=== PATIENT | male | born 1955 | race Two or more races ===

== ENCOUNTER → 2021-10-12 13:26 | Outpatient (BNVA) | payer BC, SELFPAY | PROVIDERS: PCP Internal Medicine; Visit Provider Urology ==

== ENCOUNTER → 2022-11-13 14:45 | Outpatient (BNVA) | payer BC, SELFPAY | PROVIDERS: PCP Internal Medicine; Visit Provider Urology | DX: Z13.89 Encounter for screening for other disorder (principal) ==

== ENCOUNTER 2023-11-14 13:37 | Outpatient (AMB) | payer BC, SELFPAY ==
--- NOTE | 2023-11-14 13:49 | MHC.OFFVIS ---
Intake Intake Visit Reasons: 1Y PSA(set) Intake Note: Patient is Present for Follow Up PSA Urology Medication: Sildenafil Antibiotic Allergies: NKDA Blood Thinners: NONE Allergies Ceftin Allergy (Unknown, Uncoded 11/14/23 13:50) Unknown HPI HPI Comments History of Present Illness Details Mr Stone is a very pleasant male. They are a patient of Dr. Richardson. They are seen in the office today for the following urologic conditions. - prostate cancer Yearly follow-up PSA room remains well controlled Effective urination Continued surveillance Prostate cancer:? 2011 Fortunato 3+3, low volume - treatment with external beam radiation ?Talked about going to [facility] over zoom. ? Prostate cancer was diagnosed?May 2012. PSA at diagnosis 6.1. Prostate volume 56 cc.? The Lander grade is?3+3 one out of 12 cores. Right [place] ? TNM Classification of Malignant Tumours (TNM)?T1c ? Initial therapy included?radiation therapy. Dr England at [facility]. Pre-treatment PSA had peaked at 9.4 ? Recent labs included?a free PSA June 2015 2.2, ?08/18 1.9, 05/19 1.2, 02/18 1.2, 02/19 1.1,?06/22 1.0, 08/23 0.8, 09/24 0.9, 11/26 0.9 ? Associated conditions? erectile dysfunction ?Yes ? Current symptoms include?Minimal? PFSH Medical History Hematospermia HTN (hypertension) Hyperlipidemia Prostate cancer Surgical History History of surgery Social History Patient Tobacco Use Status: Never used Tobacco Review of Systems Const Denies chills and Denies fever(s) Card Reports no additional complaints and Denies syncope Resp Denies cough GI Denies abdominal pain and Denies heartburn Reports as per HPI and Denies change in libido Neuro Denies syncope Psych Denies change in libido Endo Denies change in libido Physical Exam Const General: cooperative, healthy appearing, comfortable and no acute distress Orientation/consciousness: patient oriented x3 HEENT Face and sinus: Yes normal facial exam Mouth: moist mucous membranes Neck Neck: Yes normal visual inspection, Yes full ROM and Yes trachea midline Chest Chest palpation & inspection: normal inspection of the chest Resp Effort & Inspection: normal respiratory effort, able to speak in complete sentences and no respiratory distress GI Inspection: Yes normal to inspection Back/Spine/Pelvis Cervical Spine: normal cervical lordosis Thoracic/Lumbar Spine: thoracic and lumbar spine normal to inspection Skin General skin exam: no rashes or lesions noted Neuro General: patient oriented x3, gait normal, tone normal and moves all extremities Extrem General: Yes normal to inspection and Yes capillary refill normal Assessment & Plan Assessment & Plan (1) Prostate cancer: Comment: Fortunato 3 + 3 Code(s): C61 - Malignant neoplasm of prostate Plan Twelve month follow-up PSA Orders: Orders Prostate Specific Antigen 364 Days C61 - Malignant neoplasm of prostate Patient Instructions: Imaging studies, laboratory and physical exam results were discussed and reviewed in detail. No major barriers to patient understanding were identified. An opportunity to ask questions regarding the treatment plan was provided. All questions were answered. The patient expressed understanding and agreement with the above treatment plan. The patient is aware they should contact our office by phone for worsening of their current condition or the appearance of new urologic symptoms. Compliance is encouraged with any medications and followup testing that is ordered. It is a privilege to participate in the urologic care of your patient. If you have any questions or concerns regarding treatment for the above conditions, or other urologic issues, please do not hesitate to contact me. The office telephone contact is [phone]. This note is constructed using voice recognition software. While every effort has been made to ensure accuracy permit agent errors may have been included. Yours sincerely, Dr Ronnie Nielsen MD, [facility] - Urology Providers of Expert, Compassionate Care for the Genitourinary System Coding Level of Care Code Est Pt Level 4 (33560) Diagnoses Prostate cancer C61
== END 2023-11-14 14:54 | disposition home or self-care (01) ==
PROVIDERS: Visit Provider Urology
DX: C61 Malignant neoplasm of prostate (principal)
CPT/HCPCS: 99213

== ENCOUNTER → 2023-11-14 13:37 | Outpatient (BNVA) | payer BC, SELFPAY | PROVIDERS: Visit Provider Urology ==

== ENCOUNTER 2024-12-03 13:39 | Outpatient (AMB) | payer BC, SELFPAY ==
--- OUTSIDE RECORDS SUMMARY | 2024-12-03 13:44 | XMS_ITS | Continuity of Care Document ---
Author Organization [facility] Adult Address [address] [place] [address]- Care Team Providers Care Body Line Finisher Name Role Phone Clovis Hearn Primary Care Physician [phone] Encounter [facility] ACCT R [id number] Date(s): 11/25/24 - 12/02/24 [facility] [address] [place] [address]- Encounter Diagnosis Medicare annual wellness visit, subsequent(Discharge Diagnosis) - 11/25/24 Diabetes mellitus type 2, uncomplicated(Discharge Diagnosis) - 11/25/24 Hypertension(Discharge Diagnosis) - 11/25/24 Mixed hyperlipidemia(Discharge Diagnosis) - 11/25/24 History of prostate cancer(Discharge Diagnosis) - 11/25/24 Fatigue(Discharge Diagnosis) - 11/25/24 Numbness and tingling in both hands(Discharge Diagnosis) - 11/25/24 Vitamin D deficiency(Discharge Diagnosis) - 11/25/24 Erectile dysfunction(Discharge Diagnosis) - 11/25/24 Attending Physician: Clovis Hearn Encounter Type: Office Visit Allergies, Adverse Reactions, Alerts Substance Criticality Severity Reaction Reaction Severity Status Ceftin Active Immunizations Given and Recorded Vaccine Date Status Refusal Reason influenza virus vaccine, inactivated 08/18/24 Audi rded influenza virus vaccine, inactivated 08/20/23 Audi rded influenza virus vaccine, inactivated 07/25/22 Audi rded influenza virus vaccine, inactivated 08/04/21 Audi rded influenza virus vaccine, inactivated 08/04/20 Audi rded influenza virus vaccine, inactivated 08/16/19 Audi rded SARS-CoV-2(COVID-19)mRNA-LNP vac([id number]) 08/11/24 Recorded SARS-CoV-2(COVID-19)mRNA-LNP vac([id number]) 01/15/24 Recorded SARS-CoV-2(COVID-19)mRNA-LNP vac(vvw158) 08/05/23 Recorded RSV vaccine preF3, recombinant 07/16/23 Recorded [id number] bivalent booster vax 03/05/23 Recorded [id number] 12y+ bivalent booster vax 08/03/22 Recorded SARS-CoV-2 mRNA ([id number]) vax 03/03/22 Recorded pneumococcal 23-valent vaccine 08/29/21 Given SARS-CoV-2 (COVID-19) mRNA BNT-162b2 vac 08/07/21 Recorded SARS-CoV-2 (COVID-19) mRNA BNT-162b2 vac 01/27/21 Recorded SARS-CoV-2 (COVID-19) mRNA BNT-162b2 vac 01/06/21 Recorded zoster vaccine, inactivated 1 08/28/18 Recorded zoster vaccine, inactivated 2 06/26/18 Recorded Influenza Virus Vaccine (oldterm) 3 08/10/18 Recor ded Influenza Virus Vaccine (oldterm) 08/05/17 Recorde d Influenza Virus Vaccine (oldterm) 08/30/16 Recorde d Influenza Virus Vaccine (oldterm) 08/30/15 Recorde d Influenza Virus Vaccine (oldterm) 08/17/14 Recorde d Influenza Virus Vaccine (oldterm) 09/06/13 Recorde d Influenza Virus Vaccine (oldterm) 10/30/12 Recorde d tetanus/diphtheria/pertussis, acel(Tdap) 02/12/16 Recorded 1Result Comment: [facility] 2Result Comment: [facility] 3Result Comment: [facility] Medications Albuterol (Eqv-ProAir HFA) 90 mcg/inh inhalation aerosol 2 puffs, Inhalation, Every 4 hours, PRN NEEDED, # 8.5 each, 2 Refills, Maintenance, 06/14/24 8:35:00 AM EDT, [id number], 30, INHALE 2 PUFFS BY MOUTH EVERY 4 HOURS NEEDED, 172.7, cm, 04/14/24 16:35:00 EDT, Height, 81, kg, 03/19/23 15:44:00 EDT, Dry Weight Start Date: 06/14/24 Status: Ordered Quantity: 8.5 Unit: each Repeat number: 1 Glucosamine & Chondroitin with MSM 0 Refills, Maintenance, 03/06/22 4:14:00 PM EDT, Partial fill upon patient request if the prescription is for a schedule II opioid drug. Start Date: 03/06/22 Status: Ordered Repeat number: 1 lisinopril 20 mg oral tablet 1, tablet, By Mouth, Daily, Refills require lab work. Order in computer., # 90 tablet, Refills 0, Tot. Refills 0, Maintenance, 11/25/24 2:47:00 PM EST, Route to Pharmacy Electronically, [facility]/pharmacy #[id number], 172.7, cm, 04/14/24 16:35:00 EDT, Height, 81, kg, 03/19/23 15:44:00 EDT, Dry Weight Start Date: 11/25/24 Status: Ordered Quantity: 90.0 Unit: tablet Repeat number: 1 metFORMIN 500 mg oral tablet 1 tablet, By Mouth, Daily, # 90 tablet, 3 Refills, Maintenance, 04/14/24 4:20:00 PM EDT, [facility]/pharmacy #[id number], 172.7, cm, 04/14/24 16:07:00 EDT, Height, 81, kg, 03/19/23 15:44:00 EDT, Dry Weight Start Date: 04/14/24 Status: Ordered Quantity: 90.0 Unit: tablet Repeat number: 4 Misc Rx Triple flex, Refills 0, Maintenance, 08/21/20 4:10:00 PM EDT, Supply Start Date: 08/21/20 Status: Ordered Repeat number: 1 sildenafil 100 mg oral tablet See Instructions, TAKE HALF TO 1 WHOLE TABLET BY MOUTH DAILY NEEDED ONE HOUR BEFORE SEXUAL ACTIVITY, # 30 tablet, 2 Refills, Maintenance, 11/25/24 4:35:00 PM EST Start Date: 11/25/24 Status: Ordered Quantity: 30.0 Unit: tablet Repeat number: 3 simvastatin 10 mg oral tablet 1, tablet, By Mouth, Daily at bedtime, # 90 tablet, Refills 3, Maintenance, 02/23/24 10:00:00 AM EDT, Route to Pharmacy Electronically, [id number], 172.7, cm, 12/17/23 9:00:00 EST, Height, 81, kg, 03/19/23 15:44:00 EDT, Dry Weight Start Date: 02/23/24 Status: Ordered Quantity: 90.0 Unit: tablet Repeat number: 1 Vitamin C By Mouth, Daily, 0 Refills, Maintenance, 01/24/20 4:37:00 PM EDT Start Date: 01/24/20 Status: Ordered Repeat number: 1 Vitamin D 59319 iu oral capsule 50,000 International_Units, 1, capsule, By Mouth, Daily, Refills 0, Maintenance, 01/24/20 4:37:00 PMEDT Start Date: 01/24/20 Status: Ordered Repeat number: 1 Problem List Condition Confirmation Course Effective Dates Status H ealth Status Informant Erectile dysfunction Confirmed Active History of prostate cancer 1, 2 Confirmed 05/03/12 Active Hypertension Confirmed Active Mixed hyperlipidemia Confirmed Active Diabetes mellitus type 2, uncomplicated Confirmed Active 1Was diagnosed in 05/2012 with PSA at 6.1. Most recent PSA on 02/2019 was 1.[address] Nielsen at [facility] [place] on 02[place]10[place]2019 - Repeat PSA lab. RTC in 1 year Diagnosis Diagnosis Type Effective Dates Health Status Clinical Service Informant Medicare annual wellness visit, subsequent Discharge Diagnosis 11/25/24 Diabetes mellitus type 2, uncomplicated Discharge Diagnosis 11/25/24 Hypertension Discharge Diagnosis 11/25/24 Mixed hyperlipidemia Discharge Diagnosis 11/25/24 History of prostate cancer Discharge Diagnosis 11/25/24 Fatigue Discharge Diagnosis 11/25/24 Numbness and tingling in both hands Discharge Diagnosis 11/25/24 Vitamin D deficiency Discharge Diagnosis 11/25/24 Erectile dysfunction Discharge Diagnosis 11/25/24 Vital Signs Most recent to oldest [Reference Range]: 1 Height 172.7 cm (11/25/24 4:12 PM) Weight 74.2 kg (11/25/24 4:12 PM) Oxygen Saturation [94-100 %] 100 % (11/25/24 4:12 PM) Pulse Rate [55-90 bpm] 67 bpm (11/25/24 4:12 PM) Body Mass Index [18.5-24.99 kg/m2] 24.88 kg/m2 (11/25/24 4:12 PM) Blood Pressure [90-138/55-84 mm Hg] 123/ 83mm Hg (11/25/24 4:12 PM) Mode of Delivery (Oxygen) Room air (11/25/24 4:12 PM) Blood pressure sites Arm, right (11/25/24 4:12 PM) Social History Social History Type Response Smoking Status Never (less than 100 in lifetime) entered on: 09/16/22 Sex Sex Representation Male (finding) Note * Liat Bird MA: PERFORM Event Display: Patient Education/Instruction Authored Date: [id number] Ambulatory Adult Visit Summary [facility] [address] [place] [address] Name: LACI ORTEGA : 1955?? Visit: 11/25/2024 16:04?? Ambulatory Visit Instructions ?? Your Care Team Primary Care Provider Clovis Hearn? This Visit Provider Clovis Hearn Your Diagnosis Medicare annual wellness visit, subsequent Diabetes mellitus type 2, uncomplicated Hypertension Mixed hyperlipidemia History of prostate cancer Fatigue Numbness and tingling in both hands Vitamin D deficiency Paresthesia of skin Erectile dysfunction Vitals Signs Pulse Rate: 67 bpm Height: 172.7 cm Systolic Blood Pressure: 123 mm Hg Weight: 74.2 kg Diastolic Blood Pressure: 83 mm Hg Body Mass Index: 24.88 kg/m2 Oxygen Saturation: 100 % Body surface area: 1.89 What to do next Follow-Up Appointments Follow Up with??Clovis Hearn When:??11/30/2025 03:10 PM EST Where: [address] [place] [id number]- Follow Up with??Clovis Hearn When:??06/22/2025 03:30 PM EDT Where: [address] [place] [address]- Future Orders Basic Metabolic Panel - Routine, Once, 11/25/24 14:46:00 EST, Future Order, [facility], Blood?? Comprehensive Metabolic Panel - Routine, Once, 11/25/24 16:20:00 EST, Future Order, [facility], Blood?? Lipid Panel - Routine, Once, 11/25/24 16:20:00 EST, Future Order, [facility], Blood?? Hemoglobin A1C (Monitoring) - Routine, Once, 11/25/24 16:20:00 EST, Future Order, [facility], Blood?? Microalbumin Urine - Routine, Once, 11/25/24 16:20:00 EST, [facility], Urine?? PSA - Routine, Once, 11/25/24 16:21:00 EST, Copy to: Morales GONZALEZ, Ronnie Castellon, Future Order, [facility], Blood?? CBC w/ Differential - Routine, Once, 11/25/24 16:37:00 EST, Future Order, [facility], Blood?? Vitamin B12 Level (B12 Vitamin Level) - Routine, Once, 11/25/24 16:37:00 EST, Future Order, [facility], Blood?? TSH Rfx on Abnormal to Free T4 - Routine, Once, 11/25/24 16:37:00 EST, Future Order, [facility], Blood?? Vitamin D 25 Hydroxy Level - Routine, Once, 11/25/24 16:37:00 EST, Future Order, [facility], Blood?? Folate Level - Routine, Once, 11/25/24 16:37:00 EST, Future Order, [facility], Blood?? Magnesium Level - Routine, Once, 11/25/24 16:37:00 EST, Future Order, [facility], Blood?? Medications The list below reflects the information in our records and provided by you today along with any changes made during this visit. Please continue your medications until treatment is completed or stopped by your provider. If this is different from the information you have or there are other questions,please contact the prescribing provider. What How Much When Instructions New Sildenafil (sildenafil 100 mg oral tablet) See instructions Refills: 2 TAKE HALF TO 1 WHOLE TABLET BY MOUTH DAILY NEEDED ONE HOUR BEFORE SEXUAL ACTIVITY ?? Printed Prescription Unchanged Albuterol (Albuterol (Eqv-ProAir HFA) 90 mcg/ inh inhalation aerosol) 2 puff(s) Inhalation Every 4 hours as needed for NEEDED Unchanged Ascorbic Acid (Vitamin C) Oral Daily Unchanged Chondroitin/ Glucosamine/ Methylsulfonylmethane (Glucosamine & Chondroitin with MSM) Unchanged Ergocalciferol (Vitamin D 72171 iu oral capsule) 50,000 International Unit Oral Daily Unchanged Lisinopril (lisinopril 20 mg oral tablet) 1 tab(s) Oral Daily Refills require lab work. Order in computer. ?? Unchanged Metformin (metFORMIN 500 mg oral tablet) 1 tab(s) Oral Daily Unchanged Miscellaneous Rx (Misc Rx) Triple flex Unchanged Simvastatin (simvastatin 10 mg oral tablet) 1 tab(s) Oral Daily at Bedtime Test Performed Below is a partial list of the tests performed during your Visit. You may have had other tests and procedures not included in this list. Please discuss all test results with your provider. B12 Vitamin Level?-- Results Pending -- CBC w/ Differential?-- Results Pending -- Comprehensive Metabolic Panel?-- Results Pending -- Folate Level?-- Results Pending -- Hemoglobin A1C (Monitoring)?-- Results Pending -- Lipid Panel?-- Results Pending -- Magnesium Level?-- Results Pending -- Microalbumin Urine?-- Results Pending -- PSA?-- Results Pending -- TSH Rfx on Abnormal to Free T4?-- Results Pending -- Vitamin D 25 Hydroxy Level?-- Results Pending -- Medications and Immunizations Administered Medications Given During Visit No medications given during this visit.?? Allergies (NKA means No Known Allergies) Ceftin Common Emergency Awareness Tips IS IT A STROKE? Act FAST and Check for these signs: FACE Does the face look uneven? ARM Does one arm drift down? SPEECH Does their speech sound strange? TIME Call at any sign of stroke ?? Heart Attack Signs Chest discomfort: Most heart attacks involve discomfort in the center of the chest and lasts more than a few minutes, or goes away and comes back. It can feel like uncomfortable pressure, squeezing, fullness or pain. Discomfort in upper body: Symptoms can include pain or discomfort in one or both arms, back, neck, jaw or stomach. Shortness of breath: With or without discomfort. Other signs: Breaking out in a cold sweat, nausea, or lightheaded. Remember, MINUTES DO MATTER. If you experience any of these heart attack warning signs, call to get immediate medical attention! ?? Smoking can increase your chances of developing chronic health problems and can cause harmful effects to other family members in your house. If you smoke, you are strongly encouraged to quit. Please call [employer] at [phone] or [phone] ([phone]) or log in to [email or web address] for referrals to smoking cessation programs. ?? The National Suicide Prevention Hotline is available 26/05 if you or someone you know needs to find a reason to keep living. By calling 7-740-870-PipelineDB (7382) you'll be connected to a skilled, trained counselor at a crisis center in your area. [facility] [employer] Portal You can view and manage your care through the patient portal or by using a health care amrit of your choosing. [employer] is a website that allows you to securely view your medical information including your hospital discharge summary, office visit summaries, medications and follow-up visits. You can also request appointments, renew medications, and request access to your medical information using a health care amrit of your choosing, or just ask a question. You can enroll at [email or web address] or register during your next office visit. [facility], in keeping with [facility] guidance, no longer requires face masks for staff, patientsor visitors in most situations. Similiar to time spent indoors at other locations, there is the chance that you were exposed to repiratory viruses during your time with us (such as flu or COVID-19). If you develop symptoms concerning for a viral respiratory infection, please seek testing (and treatment if indicated) from your medical provider or home test kit. ?? Disclaimer: The information provided is of a general nature and is intended to be used in conjunction with the recommendations and advice of your health care practitioner. Every effort has been made to ensure that the information provided is accurate and complete at the time it is provided to you however, as your needs change, or, as new information becomes available, different or additional instructions may be required. ?? If you have questions, please consult with your primary care provider or pharmacist, as appropriate. This information is not intended to serve as substitution for assessment and evaluation by a qualified health care provider. If you do not have a primary care provider, you may find a [facility] [employer] provider by calling [employer] at [phone]. Patient Care team information Care Team Personnel Name: Clovis Hearn Position: [facility] PCO Associate Professional Member Role: PCP Address: [address] [place] [id number] Telecom: Care Team Related Persons Name: SAMM PORTILLO Insurance Providers Guarantor name: LACI SHANNON Health Plan Information #: 1 Payer: NA Member Number: [id number] Policy Number: NA Group Number: NA Health Plan Information #: 2 Payer: NA Member Number: [id number] Policy Number: NA Group Number: NA
--- NOTE | 2024-12-03 13:52 | MHC.OFFVIS ---
Intake Visit Reasons: 1y/PSA Intake Note: Patient is Present for 1Y Follow Up PSA Urology Medication: Sildenafil Antibiotic Allergies: NKDA Blood Thinners: NONE Bakery Chef Required: No Allergies Ceftin Allergy (Unknown, Uncoded 12/03/24 13:52) Unknown HPI Comments Details: Mr Stone is a very pleasant male. He is a patient of Dr. Richardson. He is seen for the following urologic conditions. - prostate cancer Yearly follow-up PSA room remains well controlled Effective urination Continued surveillance Prostate cancer:? 2011 [place] 3+3, low volume - treatment with external beam radiation ?Has been visiting [place] to see grandchildren ? Prostate cancer was diagnosed?May 2012. PSA at diagnosis 6.1. Prostate volume 56 cc.? The [place] grade is?3+3 one out of 12 cores. Right [place] ? TNM Classification of Malignant Tumours (TNM)?T1c ? Initial therapy included?radiation therapy. Dr England at [facility]. Pre-treatment PSA had peaked at 9.4 ? Recent labs included?a free PSA June 2015 2.2, ?08/18 1.9, 05/19 1.2, 02/18 1.2, 02/19 1.1,?06/22 1.0, 08/23 0.8, 09/24 0.9, 11/26 0.9, 11/27 1.1 ? Associated conditions? erectile dysfunction ?Yes ? Current symptoms include?Minimal? PFSH Medical History Hematospermia HTN (hypertension) Hyperlipidemia Prostate cancer Surgical History History of surgery Social History Patient Tobacco Use Status: Never used Tobacco Review of Systems Const Denies chills and Denies fever(s) Card Reports no additional complaints and Denies syncope Resp Denies cough GI Denies abdominal pain and Denies heartburn Reports as per HPI and Denies change in libido Neuro Denies syncope Psych Denies change in libido Endo Denies change in libido Physical Exam Const General: cooperative, healthy appearing, comfortable and no acute distress Orientation/consciousness: patient oriented x3 HEENT Face and sinus: Yes normal facial exam Mouth: moist mucous membranes Neck Neck: Yes normal visual inspection, Yes full ROM and Yes trachea midline Chest Chest palpation & inspection: normal inspection of the chest Resp Effort & Inspection: normal respiratory effort, able to speak in complete sentences and no respiratory distress GI Inspection: Yes normal to inspection Back/Spine/Pelvis Cervical Spine: normal cervical lordosis Thoracic/Lumbar Spine: thoracic and lumbar spine normal to inspection Skin General skin exam: no rashes or lesions noted Neuro General: patient oriented x3, gait normal, tone normal and moves all extremities Extrem General: Yes normal to inspection and Yes capillary refill normal Assessment & Plan Assessment & Plan (1) Prostate cancer: Comment: [place] 3 + 3 Code(s): C61 - Malignant neoplasm of prostate Category: Medical Plan Twelve month follow-up Orders: Orders Prostate Specific Antigen 364 Days C61 - Malignant neoplasm of prostate Patient Instructions: G Code G2211 Has been applied in accordance with CMS guidelines ( Medicare and Medicaid programs; [place] 2023 Payment Policies ) to convey the inherent complexity in ongoing patient care within the urology clinic. This deliberate utilization aligns with the visits complexity associated with medical care services serving as a focal point for necessary healthcare, addressing the patient's singular serious or complex condition. This judicious use ensure was appropriate reimbursement, especially in the context of managing such conditions within our specialized, longitudinal urologic practice. This patient has a complex and chronic urologic condition that requires longitudinal follow-up. [facility], Medicare and Medicaid programs; [place] 2023 Payment Policies Fed. Reg 88 (74): [id number] (Jun.092022) This note is constructed using voice recognition software. While every effort has been made to ensure accuracy hot dipper errors may have been included. Imaging studies, laboratory and physical exam results were discussed and reviewed in detail. No major barriers to patient understanding were identified. An opportunity to ask questions regarding the treatment plan was provided. All questions were answered. The patient expressed understanding and agreement with the above treatment plan. The patient is aware they should contact our office by phone for worsening of their current condition or the appearance of new urologic symptoms. Compliance is encouraged with any medications and followup testing that is ordered. It is a privilege to participate in the urologic care of your patient. If you have any questions or concerns regarding treatment for the above conditions, or other urologic issues, please do not hesitate to contact me. The office telephone contact is [phone]. Sincerely, Dr Ronnie Nielsen MD, [place] [facility] - Urology Compassionate Specialist Care for the Genitourinary System Coding Level of Care Code Est Pt Level 4 (79599) Complex EM visit Add On G2211 Diagnoses Prostate cancer C61
== END 2024-12-03 14:55 | disposition home or self-care (01) ==
PROVIDERS: PCP Internal Medicine; Visit Provider Urology
DX: C61 Malignant neoplasm of prostate (principal)
CPT/HCPCS: 99214

== ENCOUNTER → 2024-12-03 13:39 | Outpatient (BNVA) | payer BC, SELFPAY | PROVIDERS: PCP Internal Medicine; Visit Provider Urology ==

== ENCOUNTER 2025-08-31 11:06 | Outpatient (AMB) | payer BC, SELFPAY ==
--- NOTE | 2025-08-31 11:26 | A.OFFVIS_ITS ---
Intake Visit Reasons: hernia concerns input on sgy Intake Note: Patient is Present for discussion on Hernia surgey input and Kidney stone Urology Medication: Sildenafil Antibiotic Allergies: Ceftin Blood Thinners: None Baggage Screener Required: No Rabbet Operator: Rabbet Operator Present Accompanied by: Spouse Allergies Ceftin Allergy (Unknown, Uncoded 08/31/25 11:33) Unknown HPI Comments Details: Mr Stone is a very pleasant male. He is a patient of Dr. Richardson. He is seen for the following urologic conditions. - prostate cancer - nephrolithiasis Recent visit to [place] to visit and grandchildren Had episode of right-sided flank pain that it lasted 2 days radiating to groin CT scan showed distal right ureteric stone with proximal hydro uretero nephrosis Currently stable Discussion regarding intervention Based on size of stone and location there is little chance this will pass spontaneously. Recommend cystoscopy with right retrograde, semi rigid ureteroscopy with laser lithotripsy and stent placement. We will try to add him on for Friday. Prostate cancer:? 2011 [place] 3+3, low volume - treatment with external beam radiation ?Has been visiting [place] to see grandchildren ? Prostate cancer was diagnosed?May 2012. PSA at diagnosis 6.1. Prostate volume 56 cc.? The [place] grade is?3+3 one out of 12 cores. Right [place] ? TNM Classification of Malignant Tumours (TNM)?T1c ? Initial therapy included?radiation therapy. Dr England at [facility]. Pre-tr eatment PSA had peaked at 9.4 ? Recent labs included?a free PSA June 2015 2.2, ?08/18 1.9, 05/19 1.2, 02/18 1.2, 02/19 1.1,?06/22 1.0, 08/23 0.8, 09/24 0.9, 11/26 0.9, 11/27 1.1 ? Associated conditions? erectile dysfunction ?Yes ? Current symptoms include?Minimal? [facility] Medical History (Updated 09/05/25 @ 14:07 by Ronnie Nielsen MD) Diabetes HTN (hypertension) Hyperlipidemia Hematospermia Prostate cancer Surgical History History of surgery Social History Patient Tobacco Use Status: Never used Tobacco Have you been hit, kicked, punched, or otherwise hurt by someone within the past year? If so, by whom?: No Are you DNR?: No Advance Directives: No Advance Directives Information Provided: Yes Review of Systems Const Denies chills and Denies fever(s) Card Reports no additional complaints and Denies syncope Resp Denies cough GI Denies abdominal pain and Denies heartburn Reports as per HPI and Denies change in libido Neuro Denies syncope Psych Denies change in libido Endo Denies change in libido Physical Exam Const General: cooperative, healthy appearing, comfortable and no acute distress Orientation/consciousness: patient oriented x3 HEENT Face and sinus: Yes normal facial exam Mouth: moist mucous membranes Neck Neck: Yes normal visual inspection, Yes full ROM and Yes trachea midline Chest Chest palpation & inspection: normal inspection of the chest Resp Effort & Inspection: normal respiratory effort, able to speak in complete sentences and no respiratory distress GI Inspection: Yes normal to inspection Back/Spine/Pelvis Cervical Spine: normal cervical lordosis Thoracic/Lumbar Spine: thoracic and lumbar spine normal to inspection Skin General skin exam: no rashes or lesions noted Neuro General: patient oriented x3, gait normal, tone normal and moves all extremities Extrem General: Yes normal to inspection and Yes capillary refill normal Assessment & Plan Assessment & Plan (1) Nephrolithiasis: Code(s): N20.0 - Calculus of kidney Category: Medical Plan Ureteroscopy We discussed the nature of the decision and reasonable alternatives for performing ureteroscopy. Options such as medical therapy were discussed. Interventions include chemical dissolution, ESWL, ureteroscopy with laser lithotripsy and stent placement, PCNL. The relative uncertainties and benefits related to each alternate procedure were adequately discussed. General surgical risks including, but not limited to - pain, bleeding, infection, myocardial infarction, pulmonary embolus, deep vein thrombosis and cerebrovascular accident which may result in further hospitalization were discussed. Full disclosure of the procedure as well as all major risks, benefits and complications were discussed including but not limited to damage to the urethra, bladder and kidney infection, damage to the ureter, stent migration or malposition, scarring to the renal pelvis, remnant stone fragments, subsequent stone passage with need for secondary procedures. The overall secondary procedure rate is approximately 10-15%. The overall clearance rate is approximately 90-95%. Success of the procedure in the short-term does not necessarily guarantee that long-term success will be maintained. Suitable follow up will need to be maintained. The patient showed understanding of discussion and wishes to proceed with - cystoscopy, retrograde, ureteroscopy, possible lithotripsy/stone basketing and stent on the right side Patient Instructions: This note is constructed using voice recognition software. While every effort has been made to ensure accuracy expanded function dental assistant errors may have been included. Imaging studies, laboratory and physical exam results were discussed and reviewed in detail. No major barriers to patient understanding were identified. An opportunity to ask questions regarding the treatment plan was provided. All questions were answered. The patient expressed understanding and agreement with the above treatment plan. The patient is aware they should contact our office by phone for worsening of their current condition or the appearance of new urologic symptoms. Compliance is encouraged with any medications and followup testing that is ordered. It is a privilege to participate in the urologic care of your patient. If you have any questions or concerns regarding treatment for the above conditions, or other urologic issues, please do not hesitate to contact me. The office telephone contact is [phone]. Sincerely, Dr Ronnie Nielsen MD, [place] [facility] - Urology Compassionate Specialist Care for the Genitourinary System Coding Level of Care Code Est Pt Level 4 (43732) Diagnoses Nephrolithiasis N20.0
== END 2025-08-31 12:29 | disposition home or self-care (01) ==
LOC: HO.HUSH 11:06
PROVIDERS: PCP Internal Medicine; Visit Provider Urology
DX: N20.0 Calculus of kidney (principal)
CPT/HCPCS: 99214

== ENCOUNTER 2025-09-05 12:04 | Day surgery (SDC) | payer MEDICARE, SELFPAY ==
--- NOTE | ~2025-09-05 | FL_ITS ---
EXAMINATION: FL GUIDANCE ONLY HISTORY: stone right COMPARISON: None available. TECHNIQUE: Fluoroscopy time: 9 seconds. Cumulative Dose: 3.40 mGy. DAP: 147.12 uGym2 Images: 1. FINDINGS: A single fluoroscopic spot film of the right upper quadrant demonstrates a wire. FL/FL guidance in OR IMPRESSION: Fluoroscopy during procedure. Please see procedure report for additional information. Electronically signed by: Mustapha Rivera MD 09/06/2025 07:01 AM ELLIE
[2025-09-05 12:13] VITALS: BP 161/99; PULSE 79; RESP 18; TEMP 36.9; O2SAT 97; BMI 23.7
[2025-09-05 12:28] LABS: Glucose, Whole Blood 112 mg/dL (60-115)
[2025-09-05] MEDS: Lactated Ringers 1,000 ML 50 ML IVCONT (12:29)
--- NOTE | 2025-09-05 13:02 | HO.ANESPROP2 ---
[facility] Active Problems Active Problems: All Active Problems Prostate cancer (Acute) Past Medical History Medical History (Updated 09/05/25 @ 10:29 by Veena Muñoz RN) Diabetes HTN (hypertension) Hyperlipidemia Hematospermia Prostate cancer Cognitive capacity: full cognitive capacity Functional capacity: independent ambulation Family History Family history of problems with anesthesia: No Surgical History Surgical History History of surgery History of Problems with Anesthesia: No Social History Social History Patient Tobacco Use Status: Never used Tobacco Have you been hit, kicked, punched, or otherwise hurt by someone within the past year? If so, by whom?: No Are you DNR?: No Advance Directives: No Advance Directives Information Provided: Yes Meds Allergies Allergy/AdvReac Type Severity Reaction Status Date / Time Ceftin Allergy Unknown Unknown Uncoded 08/31/25 11:33 Active Medications: Current Medications Lactated Ringer's (Lr) 1,000 mls @ 50 mls/hr IVCONT .Q20H JENNIFER Last Admin: 09/05/25 12:29 Dose: 50 mls/hr Home Medications ?Medication ?Instructions ?Recorded ?Confirmed ?Last Taken ?Type lisinopril 20 mg tablet 20 mg PO DAILY 10/12/21 09/05/25 Unknown History metformin 500 mg tablet 500 mg PO DAILY 10/12/21 09/05/25 Unknown History simvastatin 10 mg tablet 10 mg PO BEDTIME 10/12/21 09/05/25 Unknown History fluticasone propionate 50 1 spray intranasal DAILY 10/07/22 09/05/25 Unknown History mcg/actuation nasal spray,suspension tamsulosin 0.4 mg capsule 0.4 mg PO DAILY 08/31/25 09/05/25 Unknown History Exam Height,Weight and Vital Signs: Height 5 ft 8 in Weight 156 lb Last Vital Signs Temp 98.5 F 09/05/25 12:13 Pulse 79 09/05/25 12:13 Resp 18 09/05/25 12:13 BP 161/99 H 09/05/25 12:13 Pulse Ox 97 09/05/25 12:13 O2 Del Method Room Air 09/05/25 12:13 Pertinent Lab Results Pertinent Lab Results: Laboratory Tests 09/05/25 12:24 POC Glucose 112 Airway Mallampati Class: II TM Dist: >3cm Neck ROM: Full Loose/Missing/Broken Teeth: No Heart: RRR Lungs: CTA Assessment and Plan Assessment Anesthesia Assessment: Anesthesia Plan Discussed Final Anesthetic Review Family History of Problems with Anesthesia: No History of Problems with Anesthesia: No NPO: Yes ASA Class: II Anesthetic Plan Anesthetic Plan: GA Disposition: Standard PACU
--- NOTE | 2025-09-05 14:08 | P.HPSUR_ITS ---
Pre-Procedural Eval Section A - 24 Hr Update-Section A only Date of Service: 09/05/25 The patient is an INPATIENT: No Changes since office visit: No Cold of Flu in the past 2 weeks, No New Medical Problems, No Changes in Medication and No Patient answered all questions The patient has been examined within 24 hours of the surgical procedure. The History & Physical has been completed within 30 days and I have reviewed it.: Yes Section B - Complete if H&P > 30 days Chief Complaint: Calculus of kidney Details of Present Illness: Right distal ureteric stone Relevant Family History (Specify if Yes): No Relevant Social History: None Present Medications: see Short Stay Collaborative assessment Medical History: No relevant PMH History of Previous Operations: No relevant previous surgery Allergies: Allergies Allergy/AdvReac Type Severity Reaction Status Date / Time Ceftin Allergy Unknown Unknown Uncoded 08/31/25 11:33 Review of Systems Sugical H&P ROS: Negative: Constitution, Cardiovascular, Respiratory, Neurological, Psychiatric, Hem-Onc, Allergic/Immunologic, Gastrointestinal, Genitourinary, Musculoskeletal, Integumentary, Endocrine and Eyes/Ears/Nose/Thr oat Exam Surgical H&P Exam: Normal: HEENT, Normal: Heart, Normal: Lungs, Normal: Extremities, Normal: Abdomen, Normal: Skin and Normal: Neurological Plan Diagnosis/Plan: Unchanged (Cystoscopy, right retrograde, right ureteroscopy with laser lithotripsy stent placement) I have reviewed the history and physical and performed a pertinent physical examination on my patient. No changes have occurred unless specified. Time Spent With Patient Time: Total time managing care of this patient today ____ minutes.
--- NOTE | 2025-09-05 16:22 | P.OP_ITS ---
Operative Note Operative Note Date of Service: 09/05/25 Narrative: PreOperative Diagnosis: Distal right ureteric stone Post Operative Diagnosis: Distal right ureteric stone with inflamed ureteric orifice Procedure: - cystoscopy, right retrograde - resection of distal right ureter with stone removal - right stent placement Surgeon: Dr Ronnie Nielsen Anesthesia: General Indications for procedure: Seen down in [place]. Went to hospital. Right flank pain. CT with 9 mm distal right ureteric stone and proximal right hydro uretero nephrosis. Recommended cystoscopy with rigid ureteroscopy and stone lasering. Procedure: After informed consent was verified the patient was brought to the operating room and placed in a supine position. Anesthesia was administered per protocol. The patient was placed in a modified dorsal lithotomy position and prepped and draped in a sterile fashion. Safety pause time-out and side of surgery were confirmed. Images were available for review. Antibiotic administration confirmed. A 22 Colombian cystoscope was inserted per urethra. The urethra was without abnormality. The bladder was normal in its entirety. The left ureteric orifice was seen in normal position. The right ureteric orifice was markedly inflamed. Examination performed with 30 degree and 70 degree lens. No ureteric orifice could be seen on the right side secondary to marked edema with neovascularity. There was concern given his background of prostate cancer with external beam radiation that some of the neovascular changes may represent superficial bladder neoplasm. Given this possibility decision was made to proceed with resection of the distal right ureteric orifice in order to release the stone and obtain biopsy tissue The rigid cystoscope was removed. Using the Olympus bipolar resectoscope the resectoscope sheath was placed. The right ureteric orifice area was resected. The impacted stone was encountered and stone debris removed from the distal ureter. The distal ureter was then clearly seen. The resectoscope was removed and the cystoscope was placed. Open-ended catheter was placed in the right ureteric orifice. Retrograde examination performed showing hydro uretero nephrosis. A sensor wire was placed up the renal pelvis. Based on the height of the patient a 7 Fr x 26 cm stent was used. The string was removed from the stent prior to placement. The rigid cystoscope was backloaded over the wire and advanced into the bladder. A 7 [place]ian by 26 cm double-J stent was placed into the renal pelvis and bladder under a combination of fluoroscopy and direct visualization. Proximal positioning of the stent was confirmed using fluoroscopy. The bladder was emptied. The patient tolerated the procedure well and was extubated in the operating room. They were transferred in stable condition to the recovery area. Stent will remain for 4 weeks given resection of ureteric orifice for stone access Pathology: stones, bladder biopsy Drains: Double J stent as described above
[2025-09-05 16:29] VITALS: BP 118/72; PULSE 62; RESP 24; TEMP 36.6; O2SAT 100
[2025-09-05 16:35] VITALS: BP 115/72; PULSE 63; RESP 22; O2SAT 100
[2025-09-05 16:40] VITALS: BP 130/77; PULSE 72; RESP 22; O2SAT 98
[2025-09-05 16:55] VITALS: BP 138/87; PULSE 67; RESP 18; TEMP 36.6; O2SAT 97
== END 2025-09-05 17:05 | disposition home or self-care (01) ==
PROVIDERS: PCP Physician Assistant Medical; Visit Provider Urology
PROC: (CPT 52352; principal; 2025-09-05 15:50)
DX: N20.1 Calculus of ureter (principal); N28.89 Other specified disorders of kidney and ureter; N30.20 Other chronic cystitis without hematuria; C61 Malignant neoplasm of prostate; Z92.3 Personal history of irradiation; R36.1 Hematospermia; I10 Essential (primary) hypertension; E78.5 Hyperlipidemia, unspecified; E11.9 Type 2 diabetes mellitus without complications; Z79.84 Long term (current) use of oral hypoglycemic drugs; Z79.51 Long term (current) use of inhaled steroids; Z79.899 Other long term (current) drug therapy; Z88.1 Allergy status to other antibiotic agents; Z98.890 Other specified postprocedural states
CPT/HCPCS: 52352; 52354; 52332; 82365; 82947; 88300; 88305; C1758; C1769; C2617; J0131; J1100; J1956; J2250; J2405; J2704; J3010; Q9967

== ENCOUNTER → 2025-09-05 12:04 | Outpatient (BNV) | payer MEDICARE, SELFPAY | PROVIDERS: PCP Physician Assistant Medical; Visit Provider Urology | DX: N20.1 Calculus of ureter (principal) | CPT/HCPCS: 52332; 52352; 74420 ==

== ENCOUNTER 2025-10-12 12:28 | Outpatient (AMB) | payer MEDICARE, SELFPAY ==
--- NOTE | 2025-10-12 13:03 | MHC.OFFVIS ---
Intake Visit Reasons: Cystoscopy/Stent removal/UA(set) Intake Note: Reason for Visit: Cystoscopy With Stent Removal Urology Meds: Solifenacin, Tamsulosin Blood Thinners: None Labs: Last PSA- 1.1 (11/29/2024) Imaging: None Pathology: Bladder Biopsy 09/06/2025 Last PVR: None URO G-HD Cystoscope LOT:[id number] EXP04/11/2028 School Occupational Therapist Required: No Accompanied by: Self / Same As Patient Allergies Ceftin Allergy (Unknown, Uncoded 10/12/25 13:12) Unknown HPI Comments Details: Mr Stone is a very pleasant male. He is a patient of Dr. Richardson. He is seen for the following urologic conditions. - prostate cancer - nephrolithiasis Here for stent removal Four-month follow-up renal ultrasound Stone was embedded in ureteric orifice - laser used to open ureter Discussed on composition Recommend reduced ice tea, warning about oxalate consumption Nephrolithiasis Distal right impacted stone At time of ureteroscopy required incision of right distal ureter in order to remove the stone Stent remained for 4 weeks Stone composition - Calcium oxalate monohydrate 70% Intervention - September 2025 right ureteroscopy Prostate cancer:? 2011 Fortunato 3+3, low volume - treatment with external beam radiation ?Has been visiting [place] to see grandchildren ? Prostate cancer was diagnosed?May 2012. PSA at diagnosis 6.1. Prostate volume 56 cc.? The [place] grade is?3+3 one out of 12 cores. Right Adams ? TNM Classification of Malignant Tumours (TNM)?T1c ? Initial therapy included?radiation therapy. Dr England at [facility]. Pre-treatment PSA had peaked at 9.4 ? Recent labs included?a free PSA June 2015 2.2, ?08/18 1.9, 05/19 1.2, 02/18 1.2, 02/19 1.1,?06/22 1.0, 08/23 0.8, 09/24 0.9, 11/26 0.9, 11/27 1.1 ? Associated conditions? erectile dysfunction ?Yes ? Current symptoms include?Minimal? PFSH Medical History Diabetes HTN (hypertension) Hyperlipidemia Hematospermia Prostate cancer Surgical History History of surgery Social History Patient Tobacco Use Status: Never used Tobacco Review of Systems Const Denies chills and Denies fever(s) Card Reports no additional complaints and Denies syncope Resp Denies cough GI Denies abdominal pain and Denies heartburn Reports as per HPI and Denies change in libido Neuro Denies syncope Psych Denies change in libido Endo Denies change in libido Physical Exam Const General: cooperative, healthy appearing, comfortable and no acute distress Orientation/consciousness: patient oriented x3 HEENT Face and sinus: Yes normal facial exam Mouth: moist mucous membranes Neck Neck: Yes normal visual inspection, Yes full ROM and Yes trachea midline Chest Chest palpation & inspection: normal inspection of the chest Resp Effort & Inspection: normal respiratory effort, able to speak in complete sentences and no respiratory distress GI Inspection: Yes normal to inspection Back/Spine/Pelvis Cervical Spine: normal cervical lordosis Thoracic/Lumbar Spine: thoracic and lumbar spine normal to inspection Skin General skin exam: no rashes or lesions noted Neuro General: patient oriented x3, gait normal, tone normal and moves all extremities Extrem General: Yes normal to inspection and Yes capillary refill normal Office Procedures Cystoscopy Consent Discussed risk and benefit or proposed procedure with the patient. Information consent for procedure given to the patient. Discussed technical aspects, risks, benefits and alternatives in full. Addressed all of the patient's questions and concerns regarding the procedure. The patient demonstrated knowledge and understanding. They wish to proceed with this procedure. Preparation The patient was prepped in the usual manner. A surface miner was present and in the room. Genitalia was prepped with betadine solution in a sterile manner. Lidocaine Jelly 2% was placed into the urethra and 16Fr flexible Olympus cystoscope was inserted into the meatus after adequate lubrication. Procedure Consent confirmed Genitalia prepped and draped using topical antiseptic and lidocaine jelly Cystoscopy performed using a sterile disposable Urovue digital 16 Georgian cystoscope No abnormality noted of urethra during placement Indwelling stent seen within bladder emerging from right ureteric orifices The stent was grasped with a 3 prong grasper and removed without difficulty The patient tolerated the procedure well [id number] with stent removal DISPOSABLE SCOPE URO-G FLEXIBLE SCOPE Procedure code (CPT) selection complete Office Meds lidocaine HCl 2 % mucosal jelly in applicator Performing Provider: Ronnie Nielsen MD Performing Location: [facility] [place] [facility] Administered by: Georgina Trammell RN on 10/12/25 13:17 Dose Route Admin Location Dispensed Lot Number Expiration Date ND Account Analyst 10 mL intra-urethral 10 mL nitrofurantoin monohydrate/macrocrystals 100 mg capsule Performing Provider: Ronnie Nielsen MD Performing Location: [facility] [place] [facility] Administered by: Georgina Trammell RN on 10/12/25 13:17 Dose Route Admin Location Dispensed Lot Number Expiration Date ND Account Analyst 100 mg PO 1 cap naproxen 500 mg tablet Performing Provider: Ronnie Nielsen MD Performing Location: [facility] [place] [facility] Administered by: Georgina Trammell RN on 10/12/25 13:17 Dose Route Admin Location Dispensed Lot Number Expiration Date ND Account Analyst 500 mg PO 1 tab Results AMB Urinalysis, Automated UA Leukoctes 70 Gene/uL Last Edit by Mariel Gonsalez [facility] on 10/12/25 13:13 UA Nitrite Negative Last Edit by Mariel Gonsalez [facility] on 10/12/25 13:13 UA Urobilinogen 0.2 mg/dL Last Edit by Mariel Gonsalez [facility] on 10/12/25 13:13 UA Protein 15 mg/dL Last Edit by Mariel Gonsalez [facility] on 10/12/25 13:13 UA pH 6.5 Last Edit by Mariel Gonsalez [facility] on 10/12/25 13:13 UA Blood 200 Abraham/uL Last Edit by Mariel Gonsalez [facility] on 10/12/25 13:13 UA Specific Tracy 1.010 Last Edit by Mariel Gonsalez [facility] on 10/12/25 13:13 UA Ketone Negative Last Edit by Mariel Gonsalez [facility] on 10/12/25 13:13 UA Bilirubin 0 mg/dL Last Edit by Mariel Gonsalez [facility] on 10/12/25 13:13 UA Glucose 0 mg/dL Last Edit by IZABELLA Kingsley on 10/12/25 13:13 Results Reviewed Results Reviewed: Laboratory Last Values Urine pH (Auto) 6.5 10/12/25 13:13 Specific Tracy (Auto) 1.010 10/12/25 13:13 Urine Protein (Auto) 15 mg/dL 10/12/25 13:13 Glucose (UA)(Auto) 0 mg/dL 10/12/25 13:13 Urine Ketones (Auto) Negative 10/12/25 13:13 Urine Blood (Auto) 200 Abraham/uL 10/12/25 13:13 Urine Nitrite (Auto) Negative 10/12/25 13:13 Urine Bilirubin (Auto) 0 mg/dL 10/12/25 13:13 Urine Urobilinogen (Auto) 0.2 mg/dL 10/12/25 13:13 Leukocyte Esterase (Auto) 70 Gene/uL 10/12/25 13:13 Assessment & Plan Assessment & Plan (1) Prostate cancer: Comment: Fortunato 3 + 3 Code(s): C61 - Malignant neoplasm of prostate Category: Medical (2) Nephrolithiasis: Code(s): N20.0 - Calculus of kidney Category: Medical Plan Four-month follow-up check PSA and Imaging Orders: Orders AMB Cystoscopy 10/12/25 N20.0 - Calculus of kidney AMB Urinalysis Automated 10/12/25 Z13.9 - Encounter for screening, unspecified Prostate Specific Antigen 4 Months N20.0 - Calculus of kidney Patient Instructions: This note is constructed using voice recognition software. While every effort has been made to ensure accuracy footwear stitcher errors may have been included. Imaging studies, laboratory and physical exam results were discussed and reviewed in detail. No major barriers to patient understanding were identified. An opportunity to ask questions regarding the treatment plan was provided. All questions were answered. The patient expressed understanding and agreement with the above treatment plan. The patient is aware they should contact our office by phone for worsening of their current condition or the appearance of new urologic symptoms. Compliance is encouraged with any medications and followup testing that is ordered. It is a privilege to participate in the urologic care of your patient. If you have any questions or concerns regarding treatment for the above conditions, or other urologic issues, please do not hesitate to contact me. The office telephone contact is [phone]. Sincerely, Dr Ronnie Nielsen MD, [facility] - Urology Compassionate Specialist Care for the Genitourinary System Coding Level of Care Code Est Pt Level 3 (57929) Add On Problem Visit Only Diagnoses Prostate cancer C61 Nephrolithiasis N20.0 CPT Codes Cystoscopy - CPT: 55800-[id number] with stent removal ([id number])
== END 2025-10-12 14:21 | disposition home or self-care (01) ==
LOC: HO.HUSH 12:28
PROVIDERS: PCP Physician Assistant Medical; Visit Provider Urology
DX: N20.0 Calculus of kidney (principal)
CPT/HCPCS: 52310

== ENCOUNTER → 2025-10-12 12:28 | Outpatient (BNVA) | payer MEDICARE, SELFPAY | PROVIDERS: PCP Physician Assistant Medical; Visit Provider Urology | DX: N20.0 Calculus of kidney (principal) | CPT/HCPCS: 52310; 81003 ==